=== PATIENT | female | born 1955 | race Caucasian/White ===

== ENCOUNTER 2017-05-14 16:17 | Emergency (ER) | payer BC ==
[2017-05-14 16:28] VITALS: BP 129/62
--- NOTE | 2017-05-14 16:51 | UC ---
Upper Extremity HPI - HPI Summary HPI Summary: 61 y/o female presents to the urgent care c/o Left hand pain s/p falling on the sidewalk yesterday 05/13/2017 around 1400. Pt reports pain is mild 4/10. She applied ice on it. This morning her left hand was bruise and with moderate swelling. Pt is wearing her wedding band. - History of Current Complaint Chief Complaint: UCUpperExtremity Stated Complaint: HAND INJURY Time Seen by Provider: 05/14/17 16:39 Hx Obtained From: Patient Onset/Duration: Sudden Onset, Lasting Days - 1 day, Still Present, Worse Since - this morning Severity Initially: Moderate Severity Currently: Moderate Pain Intensity: 4 Pain Scale Used: 0-10 Numeric Location Of Pain: Is Discrete @ - left hand Aggravating Factor(s): Movement Alleviating Factor(s): Ice, Rest Associated Signs And Symptoms: Positive: Swelling, Other - bruising. Negative: Numbness/Tingling - Risk Factors Non-Orthopedic Risk Factor: Negative DVT Risk Factors: Negative Septic Arthritis Risk Factor: Negative - Allergies/Home Medications Allergies/Adverse Reactions: Allergies Allergy/AdvReac Type Severity Reaction Status Date / Time Amoxicillin Allergy Unknown Verified 05/14/17 16:28 Reaction Details PMH/Surg Hx/FS Hx/Imm Hx Previously Healthy: Yes - Pt dneis PMHX - Surgical History Surgical History: None - Family History Known Family History: Positive: Cardiac Disease, Hypertension - Social History Occupation: Employed Full-time Lives: With Family Alcohol Use: Occasionally Substance Use Type: None Smoking Status (MU): Never Smoked Tobacco - Immunization History Most Recent Influenza Vaccination: Declines Review of Systems Constitutional: Negative Skin: Negative Eyes: Negative ENT: Negative Respiratory: Negative Cardiovascular: Negative Gastrointestinal: Negative Genitourinary: Negative Motor: Negative Neurovascular: Negative Musculoskeletal: Other: - left hand pain s/p fall Neurological: Negative Psychological: Negative Is Patient Immunocompromised?: No All Other Systems Reviewed And Are Negative: Yes Physical Exam Triage Information Reviewed: Yes Vital Signs: Initial Vital Signs Temp 98.5 F 05/14/17 16:23 Pulse 69 05/14/17 16:23 BP 129/62 05/14/17 16:23 Pulse Ox 100 05/14/17 16:23 Upper Extremity Course/Dx - Differential Dx/Diagnosis Differential Diagnosis/HQI/PQRI: Contusion, Fracture (Closed), Strain, Sprain Provider Diagnoses: 1-Left hand pain s/p fall. 2-minimal avulsion fraction at the base of the left third MCP phalanx Discharge - Discharge Plan Condition: Stable Disposition: HOME Prescriptions: Naproxen [Naproxen 500 mg] 500 mg PO Q8H PRN #30 tab PRN Reason: Pain Patient Education Materials: Hand Fracture (ED) Referrals: William Bergeron MD [Medical Doctor] - 2 Days Helio Nieto MD [Medical Doctor] - 2 Days Additional Instructions: 1-Please take medications as directed to alleviate pain and swelling. 2-Please apply ice, keep your hand immobilized with the splint. 3- Please f/u with Orthopedic Dr bergeron in 2 days for further evaluation and treatment.
--- NOTE | 2017-05-14 17:12 | RAD ---
INDICATION: Right hand injury COMPARISON: None TECHNIQUE: AP, lateral, and oblique views were obtained. FINDINGS: There is a possible tiny avulsion injury at the base of the proximal fossa the third digit. No other apparent acute bony findings are seen. 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 There is mild osteophytes about the wrist as well. There is mild diffuse soft tissue swelling IMPRESSION: POSSIBLE SMALL AVULSION INVOLVING THE BASE OF THE PROXIMAL PHALANX AT THE THIRD MCP JOINT
== END 2017-05-14 17:45 | disposition home or self-care (01) ==
LOC: UCEAST 16:17
DX: S62.603A Fracture of unspecified phalanx of left middle finger, initial encounter for closed fracture (principal); W19.XXXA Unspecified fall, initial encounter; Y92.480 Sidewalk as the place of occurrence of the external cause; Z88.0 Allergy status to penicillin
CPT/HCPCS: 99213; G0463